=== PATIENT | female | born 1945 | race Caucasian/White ===

== ENCOUNTER 2017-07-07 19:31 | Inpatient (IN) | payer MEDICARE, MEDICAID ==
[~2017-07-07] VITALS: Ht 152.4 cm; Wt 68.0 kg
--- NOTE | ~2017-07-07 | CN ---
PATIENT NAME:CONNOR DE LEON MEDICAL RECORD: [id number] : 49 LOCATION:[facility] D.2107 ADMIT DATE: 07/07/17 ACCOUNT: [id number] CONSULTING PHYSICIAN: PARESH PAUL MD REFERRING PHYSICIAN: CLAUDINE ARGUETA MD DATE OF CONSULTATION: 07/08/2017 CONSULT REQUESTING PHYSICIAN: Dr. Mayra Ford. REASON FOR CONSULTATION: Pneumonia, left lower lobe, left pleural effusion. HISTORY OF PRESENT ILLNESS: Ms. De Leon is a 71-year-old female who has a history of asthma. According to the patient, yesterday she was eating and the food stuck in her midchest, in the gullet and then she had a chest pain. She was coughing. She had shortness of breath. She heard herself wheezing. No fever or chills. Cough is productive with white color sputum production. The patient was brought into the ER and admitted for pneumonia, left lower lobe. REVIEW OF SYSTEMS: Mainly in the history of present illness. PAST MEDICAL HISTORY: 1. Asthma. 2. Congestive heart failure. 3. Hypertension. 4. Hypothyroidism. 5. Allergies. 6. Gastroesophageal reflux disease. PAST SURGICAL HISTORY: 1. times 2. 2. Hysterectomy. 3. History of pericardiocentesis of her pericardial effusion. ALLERGIES: SHE IS ALLERGIC TO PENICILLIN, INFLUENZA VIRUS. PRESENT MEDICATIONS: [employer] was reviewed. PERSONAL AND SOCIAL HISTORY: The patient is a nonsmoker, but she does have a secondhand exposure because of her . She is a nondrinker. FAMILY HISTORY: Noncontributory. PHYSICAL EXAMINATION: GENERAL: Now, the patient is lying comfortably in bed. She is not in acute distress. VITAL SIGNS: The blood pressure is 130/53, pulse is 93, respiration 18, temperature 98.1, and SPO2 96% on room air. HEENT: Conjunctivae pink, sclerae nonicteric. NECK: Supple, no JVD. CHEST: The chest excursion is minimal on both sides. There are crackles at the left base. No wheezing. HEART: Rhythm regular, normal sound, no murmur. ABDOMEN: Soft. Bowel sounds present. No hepatosplenomegaly. RECTAL: Deferred. EXTREMITIES: No cyanosis, no clubbing, no pedal edema. CONSULT REPORT [id number] MOISES,DONIE SKIN: Warm, normal turgor. CENTRAL NERVOUS SYSTEM: The patient is awake and alert. There is no obvious cranial nerve abnormality. The gait was not tested. IMAGING: Chest radiograph, there is a left-sided pleural effusion. There is left lower lobe infiltrate. LABORATORY DATA: CBC: WBC is 11.2, hemoglobin 12.8, hematocrit is 39.5, the platelet count is 291. Chemistries: Creatinine is 0.9, potassium is 3.5, sodium is 135. IMPRESSION: 1. Pneumonia, left lower lobe, possible aspiration and possible community-acquired pneumonia. 2. Left pleural effusion, parapneumonic. 3. Gastroesophageal reflux disease. 4. Dysphagia. 5. Asthma with acute exacerbation. 6. Leukocytosis. 7. History of congestive heart failure. 8. History of pericardial effusion. RECOMMENDATION: 1. I will get the CT scan of the chest. 2. GI consult. 3. Swallowing evaluation. 3. Continue Levaquin IV. Start on clindamycin IV. 4. Start on Brovana, budesonide nebulizer, albuterol/ipratropium nebulizer. Dr. Ford, thank you for involving me in the care of Ms. De Leon. TRANSINT:[id number] Voice Confirmation ID: [id number] DOCUMENT ID: [id number] PARESH PAUL MD CC: CLAUDINE ARGUETA MD [id number] DICTATION DATE: 07/08/17 1537 COMPLIANCE ENGINEER: 07/09/17 0056 ADM IN [facility] [address] [place] [address]
[~2017-07-07 19:31] MED LIST: ASPIRIN325 MG PO; BAYER CHEWABLE81 MG PO; COLACE100 MG PO; FLAGYL500 MG PO; FLORAJEN3 CAPS460 MG PO; LEVAQUIN750 MG PO; MIRALAX17 GM PO; NITROSTAT0.4 MG SL; NORCO 10/325 TA1 TA1 PO; PRINIVIL20 MG PO; SYNTHROID PO; SYNTHROID150 MCG PO; TOPROL XL50 MG PO; TUDORZA PRESS400 MCG INH; XANAX0.5 MG PO; ZANTAC150 MG PO
[2017-07-07 20:43] LABS: BASOPHILS 0.2 % (0-2); EOSINOPHILS 0.4 % (0-7); HEMATOCRIT 39.5 % (36.0-48.0); HEMOGLOBIN 12.8 g/dL (12-16); IMMATURE GRANULOCYTES 0.6 % (0-5); LYMPHOCYTES 8.2 % (15-50); MCH 28.9 pg (26.0-34.0); MCHC 32.4 g/dL (31.0-37.0); MCV 89.2 fL (80.0-100.0); MEAN PLATELET VOLUME 9.2 fL (7.4-10.4); MONOCYTES 6.5 % (2-11); NEUTROPHILS 84.1 % (40-80); PLATELET COUNT 291 10x3/uL (130-400); RBC 4.43 10x6/uL (4.00-5.40); RDW 14.2 % (11.5-14.5); WBC 11.2 10x3/uL (4.8-10.8)
[2017-07-07 20:58] LABS: ALBUMIN 3.5 g/dL (3.4-5.0); ALKALINE PHOSPHATASE 93 U/L (46-116); ALT (SGPT) 29 U/L (10-68); BILIRUBIN - TOTAL 0.21 mg/dL (0.2-1.3); CALC OSMOLALITY 277 mosm/kg (275-300); CALCIUM 9.1 mg/dL (8.5-10.1); CHLORIDE - SERUM 102 mmol/L (98-107); CREATININE - SERUM 0.9 mg/dL (0.6-1.3); GLUCOSE 137 mg/dL (74-106); SODIUM 135 mmol/L (136-145); UREA NITROGEN 30 mg/dL (7-18); eGFR NON AFRICAN AMERICAN 66 mL/min (90-120)
[2017-07-07 21:09] LABS: CREATINE KINASE 59 UL (21-215); PRO BNP 134 pg/mL (0-125)
[2017-07-07 21:10] LABS: TROPONIN-I < 0.017 ng/mL (0.000-0.060)
[2017-07-08] VITALS (7 sets, daily range): BP systolic 120–148; BP diastolic 50–64; Ht 152.4 cm; Wt 68.0 kg
--- NOTE | 2017-07-08 00:50 | NUR ---
PT RECEIVED VIA WHEELCHAIR, AWAKE, ALERT, ORIENTED, C/O NAUSEA AND BEING COLD. PT WAS ASSISTED TO BED WITHOUT DIFFICULTY, V/S STABLE. ASSESSMENT AND HX COMPLETE. BEDSIDE COMMODE PLACED WITHIN EASY REACH OF PT, CALL LIGHT IN REACH, SIDE RAILS X 2, HOB 30 DEGREES. PT TO CALL WHEN NEEDING ANY ASSISTANCE.
--- NOTE | 2017-07-08 08:27 | NUR ---
0705-AM ROUNDING DONE WITH NO COMPLAINTS EXCEPT FOR BREAKFAST THIS AM. INFORMED HER THAT BREAKFAST WILL BE AROUND 0800. RIGHT HAND SEEN WITH NS INFUSING AT 75 CC/HR WITHOUT PROBLEMS. BSC AT BEDSIDE, ENCOURAGED TO USE CALL LIGHT FOR ALL NEEDS. ON ROM AIR. WILL CONTINUE TO MONITOR.
--- NOTE | 2017-07-08 13:07 | NUR ---
EKG DONE ORDERED.
[2017-07-08 13:51] LABS: CKMB 0.3 U/L (0.0-3.6); CREATINE KINASE 42 UL (21-215); TROPONIN-I < 0.017 ng/mL (0.000-0.060)
--- NOTE | 2017-07-08 14:10 | NUR ---
BILATERAL SCD'S PLACED ON PATIENT AND INSTRUCTED TO WHY THEY ARE ON. INSTRUCTED INTO STRICT I & O. [place] HAT PLACED IN [facility]. PLACED ON HEART MONITOR SHOWING SR W BBB, HR 74.
--- NOTE | 2017-07-08 14:14 | NUR ---
CALLED AND SPOKE WITH GÓMEZ IN THE LAB R/T ADDING EP TO LAB ALREADY DRAWN.
--- NOTE | 2017-07-08 15:12 | NUR ---
Is the patient Alert and Oriented? Yes 0 * How many steps to enter\exit or inside your home? NONE 0 * PCP DR ARGUETA 0 * Pharmacy CHANGING TO [facility] [address] * Preadmission Environment Home Alone 0 * ADLs Independent 0 * Equipment Walker 0 * Other Equipment NONE STATES SHE WAS TOLD BY THE LOAN PROCESSING SUPERVISOR SHE MAY NEED A NEBULIZER 0 * List name and contact numbers for known caregivers / representatives who currently or will assist patient after discharge: CAYETANO FIGUEROA- NEIGHBOR AND FRIEND [phone] 0 * Please name any agencies selected above. NONE 0 * Additional services required to return to the preadmission environment? No 0 * Can the patient safely return to the preadmission environment? Yes 0 * Has this patient been hospitalized within the prior 30 days at any hospital? Yes 0
--- NOTE | 2017-07-08 15:13 | NUR ---
MET W/ PATIENT AT THE BEDSIDE. SHE GAVE PERMISSION TO SPEAK WITH HER IN THE PRESENCE OF HER NEIGHBOR, CAYETANO FIGUEROA. CAYETANO IS ALSO A GOOD FRIEND. HER SON IN LAW, JORDIN , WILL PROVIDE TRANSPORTATION TO HOME AT DISCHARGE. CONTACT PHONE NUMBER- [phone]. PATIENT LIVES ALONE W/ HER 2 CATS AND A DOG. SHE HAS NO STEPS TO ENTER HER HOME. HAS A RAMP. AMBULATES WITH A WALKER. DENIES ANY OTHER DME. PCP- DR ARGUETA CARDIOLOGY- DR JIMENEZ HAS PULMONARY CONSULT W/ DR PAUL TODAY PHARMACY - CHANGING TO [facility] [address]. DME- WALKER- OMY[facility] IN [employer]- RECEIVES MEALS ON WHEELS STATES DR WILL SEND HOUSECALLS AT DISCHARGE. SHE DOES NOT WANT HOMECARE. STATES SHE MAY BE DISCHARGED TO HOME TOMORROW. HAS GOOD SUPPORT WITH JORDIN MONTEIRO AND HER ORIENTAL [employer] MEMBERS. [facility] DR SAID SHE MAYBE A NEBULIZER AT DISCHARGE. CM TO FOLLOW TO ASSIST IS APPROPRIATE
[2017-07-08 15:33] LABS: MAGNESIUM - SERUM 1.7 mg/dL (1.8-2.4); PHOSPHOROUS 3.1 mg/dL (2.5-4.9); POTASSIUM - SERUM 3.5 mmol/L (3.5-5.1)
--- NOTE | 2017-07-08 15:39 | NUR ---
I CALLED LASHAWN IN PHARMACY TO ASK ABOUT PATIENT BEING ON CLEOCIN AND ALLERGY TO PCN. HE STATES THAT THIS SHOULD BE FINE.
--- NOTE | 2017-07-08 17:09 | NUR ---
DR SRINIVAASN HERE TO SEE PATIENT.
--- NOTE | 2017-07-08 17:40 | NUR ---
EGD WITH TIVA PERMITS SIGNED AND WITNESSED, PLACED ON CHART. PATIENT IS MADE AWARE OF NPO PAST MIDNIGHT.
--- NOTE | 2017-07-08 18:07 | NUR ---
2ND EKG DONE ORDERED.
[2017-07-08 19:07] LABS: CKMB 0.3 U/L (0.0-3.6); CREATINE KINASE 51 UL (21-215)
--- NOTE | 2017-07-08 19:15 | NUR ---
TO CT VIA WHEELCHAIR.
[2017-07-08 19:25] LABS: TROPONIN-I < 0.017 ng/mL (0.000-0.060)
--- NOTE | 2017-07-08 19:45 | NUR ---
PT LYING IN BED, AWAKE, ALERT, ORIENTED, REQUESTING PRN PAIN MEDICATION. PT DENIES ANY OTHER NEEDS. CONTINUE TO MONITOR CLOSELY. BED LOW, CALL LIGHT IN REACH, SIDE RAILS X 2, HOB 30 DEGREES.
--- NOTE | 2017-07-09 01:34 | NUR ---
07/08/172299 - PT CALLED C/O GENERALIZED ITCHING AND SUGGESTED IT MAY BE FROM THE LEVAQUIN INFUSION. I ASKED PT IF SHE EXPERIENCED ITCHING LAST NIGHT WHEN SHE RECEIVED LEVAQUIN IN THE ER, AND SHE STATED "YES" THAT SHE DID EXPERIENCE GENERALIZED ITCHING WITH THAT DOSE WELL. I HAVE HELD THE CLEOCIN FOR 2300 WELL SINCE BOTH ANTIBIOTICS WERE GIVEN CLOSE TOGETHER. I DID OVERRIDE PO BENADRYL FOR PT AND DID GIVE HER A COLD WET WASH CLOTH TO RUB ON THE PLACES THAT WERE ITCHING. PT HAS BEEN RESTING COMFORTABLY SINCE. CONTINUE TO MONITOR CLOSELY. BED LOW, CALL LIGHT IN REACH, SIDE RAILS X 2, HOB 30 DEGREES. PT STATES THAT SHE UNDERSTANDS THAT SHE IS NPO AFTER MIDNIGHT.
[2017-07-09 01:54] LABS: CKMB 0.4 U/L (0.0-3.6); CREATINE KINASE 51 UL (21-215); TROPONIN-I < 0.017 ng/mL (0.000-0.060)
--- NOTE | 2017-07-09 03:24 | NUR ---
PT LYING IN BED ON BACK, EYES CLOSED RESPIRATIONS EVEN AND UNLABORED. CONTINUE TO MONITOR CLOSELY. BED LOW, CALL LIGHT IN REACH, SIDE RAILS X 2, HOB 30 DEGREES.
[2017-07-09 04:14] VITALS: BP 134/66
[2017-07-09 05:42] LABS: BASOPHILS 0.6 % (0-2); EOSINOPHILS 0.9 % (0-7); HEMATOCRIT 36.7 % (36.0-48.0); HEMOGLOBIN 11.8 g/dL (12-16); IMMATURE GRANULOCYTES 0.7 % (0-5); LYMPHOCYTES 13.5 % (15-50); MCH 28.9 pg (26.0-34.0); MCHC 32.2 g/dL (31.0-37.0); MCV 89.7 fL (80.0-100.0); MEAN PLATELET VOLUME 9.3 fL (7.4-10.4); MONOCYTES 10.6 % (2-11); NEUTROPHILS 73.7 % (40-80); PLATELET COUNT 264 10x3/uL (130-400); RBC 4.09 10x6/uL (4.00-5.40); RDW 14.5 % (11.5-14.5)
[2017-07-09 05:56] LABS: CALC OSMOLALITY 284 mosm/kg (275-300); CALCIUM 8.5 mg/dL (8.5-10.1); CARBON DIOXIDE 28.6 mmol/L (21.0-32.0); CHLORIDE - SERUM 107 mmol/L (98-107); CREATININE - SERUM 0.8 mg/dL (0.6-1.3); GLUCOSE 106 mg/dL (74-106); POTASSIUM - SERUM 3.3 mmol/L (3.5-5.1); SODIUM 143 mmol/L (136-145); eGFR NON AFRICAN AMERICAN 75 mL/min (90-120)
[2017-07-09 06:02] LABS: WBC 6.8 10x3/uL (4.8-10.8)
[2017-07-09 06:13] LABS: UREA NITROGEN 12 mg/dL (7-18)
--- NOTE | 2017-07-09 07:01 | NUR ---
PT COULD ONLY TOLERATE DRINKING 1/2 OF THE PO LIQUID POTASSIUM WITH JUICE THIS MORNING, STATING IT MADE HER SICK/NAUSEATED. PT ALSO IS REQUESTING FOR K+ PILL/TABLET INSTEAD OF TAKING THE LIQUID. PTS CLINDAMYCIN DROPPED, REPLACING WITH ANOTHER VIAL. I ASSISTED PT TO BATHROOM, DENIES ANY OTHER NEEDS. PT KNOWS TO REMAIN NPO FOR ENDOSCOPE LATER TODAY.
--- NOTE | 2017-07-09 07:37 | NUR ---
PT SITTING UP IN BED TALKING ON THE PHONE DENIES ANY NEEDS WILL CONT TO MONITOR
--- NOTE | 2017-07-09 08:20 | NUR ---
PT PIV INFILTRATED DC WITH CATH TIP INTACT WILL RESITE
[2017-07-09 08:49] VITALS: BP 120/59
--- NOTE | 2017-07-09 11:11 | NUR ---
SPOKE WITH MERVAT KENYON ABOUT PT REACTION TO POSSIBLY LEVAQUIN OR CLIDOMYCIN. NIGHT NURSE WAS UNSURE WHICH ONE. SAID TO HOLD FOR NOW AND WILL TALK WITH DR PAUL WHEN HE GETS HERE. WILL DO.
--- NOTE | 2017-07-09 11:34 | NUR ---
PT IS REFUSING FOR ME TO RESITE HER PIV BECAUSE SHE WANTS IT IN HER FA. I DO NOT SEE/FEEL ANY AVAILABLE ACCESS SITE. CALLED DANA ARTHUR NURSE TO SEE IF SHE WOULD ATTEMPT RESITE. ON HER WAY
[2017-07-09 11:58] VITALS: BP 127/63
--- NOTE | 2017-07-09 13:03 | NUR ---
PT IS REFUSING TO RECEIVE THE KCL RIDERS FOR LOW POTASSIUM. PT IS NPO AND PROTOCOL CALLS FOR IV RIDERS. OFFERED TO WAIT AFTER PT PROCEDURE SO SHE COULD TAKE THE ORAL KCL PER PROTOCOL BUT PT IS REFUSING "THAT NASTY STUFF". PT KCL IS NOT CRITICAL AND PT IS NOT SYMPTOMATIC. PT IS AWARE AND DOES NOT WANT ANY TREATMENT FOR HER LOW K LEVEL OF 3.3
--- NOTE | 2017-07-09 14:41 | NUR ---
TALKED WITH DR PAUL ABOUT PT BEING ALLERGIC TO POSSIBLY BOTH LEVAQUIN AND CLINDOMYCIN. SHE HAD ITCHING REACTION AT THE END OF LEVAQUIN AND BEGINNING OF CLINDO.
--- NOTE | 2017-07-09 15:33 | NUR ---
PT BACK FROM EGD. ALERT AND ORIENTED. VS ARE WNL FAMILY AT BEDSIDE. WILL CONT TO MONITOR
--- NOTE | 2017-07-09 15:36 | NUR ---
SPOKE WITH DR PAUL ABOUT PT REACTION TO LEVAQUIN OR POSSIBLY CLINDOMYCIN. SAID TO SHLOMO LEVAQUIN FOR NOW. DONE. WILL WATCH FOR REACTION FOR CLINDOMYCIN
[2017-07-09 16:09] VITALS: BP 122/56
--- NOTE | 2017-07-09 18:37 | NUR ---
PT SITTING UP IN BED WATCHING TV DENIES NEEDS
--- NOTE | 2017-07-09 19:53 | NUR ---
PT IS RESTING QUIETLY IN BED DOING A UPDRAFT TX AT THIS TIME. ALERT AND ORIENTED X 3. DENIES ANY PAIN OR DISCOMFORT. PT STATES SHE FEELS MUCH BETTER, AND MAY GET TO GO HOME TOMORROW. IV INFUSING TO LFA WITHOUT DIFFICULTY. NO REDNESS OR EDEMA NOTED AT THE INSERTION SITE. SR'S ARE UP X 3 IN BED. CALL LIGHT AND BEDSIDE TABLE ARE WITHIN EASY REACH.
[2017-07-09 20:00] VITALS: BP 127/55
--- NOTE | 2017-07-09 21:43 | NUR ---
PT IS RESTING IN BED WITH EYES OPEN. NO NEEDS VOICED. PT IS VERY TALKATIVE.
--- NOTE | 2017-07-09 23:51 | NUR ---
PT IS RESTING QUIETLY IN BED WITH EYES CLOSED. NO ACUTE DISTRESS NOTED.
[2017-07-10 01:25] VITALS: BP 117/57
--- NOTE | 2017-07-10 02:39 | NUR ---
PT IS RESTING QUIETLY IN BED WITH EYES CLOSED.
--- NOTE | 2017-07-10 03:58 | NUR ---
INSTRUMENTATION SUPERVISOR AT BEDSIDE TO OBTAIN VITALS, CALL LIGHT IN REACH. WILL CONTINUE WITH PLAN OF CARE.
[2017-07-10 04:12] VITALS: BP 114/54
--- NOTE | 2017-07-10 05:20 | NUR ---
PT IS RESTING IN BED WITH EYES OPEN. VERY TALKIATIVE. NO ACUTE DISTRESS NOTED. NO NEEDS VOICED.
[2017-07-10 05:53] LABS: BASOPHILS 0.3 % (0-2); EOSINOPHILS 1.1 % (0-7); HEMATOCRIT 35.5 % (36.0-48.0); HEMOGLOBIN 11.4 g/dL (12-16); IMMATURE GRANULOCYTES 1.1 % (0-5); LYMPHOCYTES 12.8 % (15-50); MCH 28.9 pg (26.0-34.0); MCHC 32.1 g/dL (31.0-37.0); MCV 90.1 fL (80.0-100.0); MEAN PLATELET VOLUME 9.1 fL (7.4-10.4); MONOCYTES 10.3 % (2-11); NEUTROPHILS 74.4 % (40-80); PLATELET COUNT 271 10x3/uL (130-400); RBC 3.94 10x6/uL (4.00-5.40); RDW 14.9 % (11.5-14.5)
[2017-07-10 06:17] LABS: ANION GAP 12.1 mmol/L (8-16); CALCIUM 8.3 mg/dL (8.5-10.1); CARBON DIOXIDE 26.2 mmol/L (21.0-32.0); CREATININE - SERUM 0.9 mg/dL (0.6-1.3); PHOSPHOROUS 2.9 mg/dL (2.5-4.9); POTASSIUM - SERUM 3.3 mmol/L (3.5-5.1)
--- NOTE | 2017-07-10 07:26 | NUR ---
AM ROUNDING DONE WITH PATIENT DRINKING JUSICE WITH LIQUID POTASSIUM. ON EP. K+ WAS 3.3 THIS AM. WILL WATCH FOR RE-DRAW THAT IS ORDERED. LEFT WRIST SEEN WITH NS INFUSING AT 75 CC/HR. ON ROOM AIR. ON HEART MONITOR SHOWING SR W BBB, HR 91. WILL CPOC.
[2017-07-10 09:12] VITALS: BP 140/77
[2017-07-10 12:50] VITALS: BP 142/75
--- NOTE | 2017-07-10 13:27 | NUR ---
Nutrition follow-up: Diet: Regular soft PO intake ~75% of meals Labs reviewed Wt: 150# RDN visited with pt during breakfast; helped pt fill out todays menus. Pt reports no being able to eat very much per doctors orders. RDN following.
[2017-07-10] MEDS ORDERED: CARAFATE1 G/10 ML PO (14:53)
[2017-07-10] MEDS ORDERED: PROTONIX40 MG PO (14:54)
[2017-07-10] MEDS ORDERED: PEPCID20 MG PO (14:54)
--- NOTE | 2017-07-10 15:35 | NUR ---
HEART MONITOR IS TURNED IN PATIENT IS BEING DISCHARGED.
--- NOTE | 2017-07-10 15:57 | NUR ---
Patient Name: CONNOR DE LEON Encounter No: [id number] : 1945 Primary Insurance: [id number] Anticipated DC Date: 07-10-2017 Planned Disposition: Home DCP follow-up note: CM RECEIVED DISCHARGE ORDER, MET WITH PT IN ROOM TO DISCUSS DISCHARGE NEEDS AND PLANNING. CM DISCUSSED AVAILABILITY OF HOME HEALTH, REHAB SERVICES AND MEDICAL EQUIPMENT. PT DENIES DISCHARGE NEEDS, DOES NOT WANT THERAPY OR REHAB SERVICES, REPORTS HAVING A WALKER AT HOME AND A NEIGHBOR THAT CHECKS ON HER AND ASSISTS IF NEEDED. PT'S NEIGHBOR HERE TO TRANSPORT HOME AT DISCHARGE. IMPORTANT MESSAGE FROM MEDICARE PROVIDED AND EXPLAINED. Rd Jack, CASE MANAGEMENT
--- NOTE | 2017-07-10 16:55 | NUR ---
SALINE LOCK REMOVED WITH CATH TIP INTACT. VERBAL AND WRITTEN DISCHARGE INSTRUCTIONS GIVEN TO PATIENT. DISCHARGED HOME VIA WHEELCHAIR.
== END 2017-07-10 16:57 | disposition home or self-care (01) | DRG 178 ==
LOC: D.ER 19:31 → D.M2 23:40 → OBSVTIME 23:41 → D.M2 07-09 11:13
PROVIDERS: Family Medicine; Internal Medicine Gastroenterology; Nurse Practitioner Acute Care; ADMIT Family Medicine
PROC: 0DB68ZX Excision of Stomach, Via Natural or Artificial Opening Endoscopic, Diagnostic (ICD-10-PCS; 2017-07-09)
PROC: 0DB58ZX Excision of Esophagus, Via Natural or Artificial Opening Endoscopic, Diagnostic (ICD-10-PCS; 2017-07-09)
PROC: 0DB98ZX Excision of Duodenum, Via Natural or Artificial Opening Endoscopic, Diagnostic (ICD-10-PCS; principal; 2017-07-09 14:00)
DX: J69.0 Pneumonitis due to inhalation of food and vomit (principal); K22.10 Ulcer of esophagus without bleeding; J45.901 Unspecified asthma with (acute) exacerbation; J98.11 Atelectasis; I31.3 Pericardial effusion (noninflammatory); I11.0 Hypertensive heart disease with heart failure; I50.9 Heart failure, unspecified; F41.9 Anxiety disorder, unspecified; E03.9 Hypothyroidism, unspecified; K21.0 Gastro-esophageal reflux disease with esophagitis; K44.9 Diaphragmatic hernia without obstruction or gangrene; K29.70 Gastritis, unspecified, without bleeding; K29.80 Duodenitis without bleeding

== ENCOUNTER 2017-11-10 19:18 | Emergency (ER) | payer MEDICARE, MEDICAID ==
[2017-07-08 12:13] VITALS: BMI 29.2
[~2017-11-10 19:18] MED LIST changes: +CARAFATE1 G/10 ML PO; +PEPCID20 MG PO; +PROTONIX40 MG PO
[2017-11-10 20:25] LABS: BASOPHILS 0.3 % (0-2); EOSINOPHILS 0 % (0-7); HEMATOCRIT 38.3 % (36.0-48.0); HEMOGLOBIN 12.4 g/dL (12-16); IMMATURE GRANULOCYTES 0.5 % (0-5); MCH 28.1 pg (26.0-34.0); MCHC 32.4 g/dL (31.0-37.0); MCV 86.7 fL (80.0-100.0); MEAN PLATELET VOLUME 9.2 fL (7.4-10.4); MONOCYTES 8.7 % (2-11); NEUTROPHILS 84.5 % (40-80); PLATELET COUNT 237 10x3/uL (130-400); RBC 4.42 10x6/uL (4.00-5.40); RDW 14.5 % (11.5-14.5); WBC 7.6 10x3/uL (4.8-10.8)
[2017-11-10 20:49] LABS: ALBUMIN 3.4 g/dL (3.4-5.0); ALKALINE PHOSPHATASE 80 U/L (46-116); ALT (SGPT) 41 U/L (10-68); BILIRUBIN - TOTAL 0.24 mg/dL (0.2-1.3); CALC OSMOLALITY 271 mosm/kg (275-300); CALCIUM 8.3 mg/dL (8.5-10.1); CHLORIDE - SERUM 98 mmol/L (98-107); CREATININE - SERUM 0.8 mg/dL (0.6-1.3); GLUCOSE 117 mg/dL (74-106); POTASSIUM - SERUM 3.3 mmol/L (3.5-5.1); SODIUM 134 mmol/L (136-145); UREA NITROGEN 22 mg/dL (7-18); eGFR NON AFRICAN AMERICAN 75 mL/min (90-120)
[2017-11-10 20:55] LABS: PRO BNP 138 pg/mL (0-125)
[2017-11-10 20:58] LABS: TROPONIN-I < 0.017 ng/mL (0.000-0.060)
== END 2017-11-10 21:30 | disposition home or self-care (01) ==
LOC: D.ER 19:18
PROVIDERS: Family Medicine
DX: J20.9 Acute bronchitis, unspecified (principal); I10 Essential (primary) hypertension

== ENCOUNTER 2017-12-04 10:12 | Emergency (ER) | payer MEDICARE, MEDICAID ==
[2017-07-08 12:13] VITALS: BMI 29.2
== END 2017-12-04 13:05 | disposition home or self-care (01) ==
LOC: D.ER 10:12
DX: S00.83XA Contusion of other part of head, initial encounter (principal); W01.0XXA Fall on same level from slipping, tripping and stumbling without subsequent striking against object, initial encounter; Y93.89 Activity, other specified; Y92.019 Unspecified place in single-family (private) house as the place of occurrence of the external cause; S00.81XA Abrasion of other part of head, initial encounter; S02.2XXA Fracture of nasal bones, initial encounter for closed fracture

== ENCOUNTER 2018-06-13 13:36 | Emergency (ER) | payer MEDICARE, MEDICAID ==
[~2018-06-13] VITALS: Ht 152.4 cm; Wt 66.4 kg
[2018-06-13 13:38] VITALS: Ht 152.4 cm; Wt 66.4 kg
[2018-06-13 14:36] LABS: BASOPHILS 0.5 % (0-2); EOSINOPHILS 0.7 % (0-7); HEMATOCRIT 40.1 % (36.0-48.0); IMMATURE GRANULOCYTES 0.6 % (0-5); LYMPHOCYTES 10.7 % (15-50); MCH 29.1 pg (26.0-34.0); MCHC 32.4 g/dL (31.0-37.0); MCV 89.9 fL (80.0-100.0); MEAN PLATELET VOLUME 10.2 fL (7.4-10.4); MONOCYTES 6.3 % (2-11); NEUTROPHILS 81.2 % (40-80); RBC 4.46 10x6/uL (4.00-5.40); RDW 15.1 % (11.5-14.5); WBC 10.5 10x3/uL (4.8-10.8)
[2018-06-13 14:39] LABS: PLATELET COUNT 340 10x3/uL (130-400)
[2018-06-13 14:45] LABS: APTT 29.9 SECONDS (22.8-39.4); INR 0.9 (0.85-1.17); PROTIME 11.8 SECONDS (11.6-15.0)
[2018-06-13 14:52] LABS: APPEARANCE HAZY (CLEAR); BILIRUBIN NEGATIVE (NEGATIVE); COLOR YELLOW (YELLOW); GLUCOSE NEGATIVE (NEGATIVE); KETONE NEGATIVE (NEGATIVE); NITRITE NEGATIVE (NEGATIVE); PROTEIN NEGATIVE (NEGATIVE); UROBILINOGEN NORMAL (NORMAL)
[2018-06-13 14:54] LABS: BACTERIA MODERATE /hpf (NONE SEEN); EPITHELIAL CELLS 0-5 /hpf (0-5); RED CELLS - URINE 0-5 /hpf (0-5)
[2018-06-13 15:00] LABS: D-DIMER-QUANTITATIVE 9.06 ug/mLFEU (0.20-0.54)
[2018-06-13 15:16] LABS: ALBUMIN 3.4 g/dL (3.4-5.0); ALKALINE PHOSPHATASE 72 U/L (46-116); ALT (SGPT) 22 U/L (10-68); BILIRUBIN - TOTAL 0.19 mg/dL (0.2-1.3); CALC OSMOLALITY 275 mosm/kg (275-300); CALCIUM 8.4 mg/dL (8.5-10.1); CARBON DIOXIDE 28.8 mmol/L (21.0-32.0); CHLORIDE - SERUM 104 mmol/L (98-107); CREATININE - SERUM 0.9 mg/dL (0.6-1.3); GLUCOSE 108 mg/dL (74-106); POTASSIUM - SERUM 3.5 mmol/L (3.5-5.1); PROTEIN - SERUM 6.6 g/dL (6.4-8.2); SODIUM 136 mmol/L (136-145); UREA NITROGEN 21 mg/dL (7-18); eGFR NON AFRICAN AMERICAN 66 mL/min (90-120)
[2018-06-13 15:27] LABS: CKMB 0.5 U/L (0.0-3.6); TROPONIN-I < 0.017 ng/mL (0.000-0.060)
[2018-06-13 17:59] VITALS: BP 118/60
[2018-06-17 12:15] LABS: CK - ISO (BB) 0 % (0); CK - ISO (CK TOTAL) 51 U/L (24-173); CK - ISO (CK-MB) 0 % (0-3); CK - ISO (CK-MM) 100 % (97-100); CK - ISO (MACRO TYPE 1) 0 % (Not Observed); CK - ISO (MACRO TYPE 2) 0 % (Not Observed)
== END 2018-06-13 18:09 | disposition home or self-care (01) ==
LOC: D.ER 13:36
PROVIDERS: Family Medicine
DX: R06.00 Dyspnea, unspecified (principal); I10 Essential (primary) hypertension; I50.9 Heart failure, unspecified; K21.9 Gastro-esophageal reflux disease without esophagitis

== ENCOUNTER → 2019-08-20 12:19 | Outpatient (CLI) | payer MEDICARE, MEDICAID ==
[2018-06-13 13:38] VITALS: BMI 28.5
== END | disposition home or self-care (01) ==
LOC: D.RAD 12:19
PROVIDERS: ATTEND Family Medicine
DX: R13.10 Dysphagia, unspecified (principal); R11.10 Vomiting, unspecified

== ENCOUNTER 2020-05-13 15:14 | Emergency (ER) | payer MEDICARE, MEDICAID ==
[~2020-05-13] VITALS: Ht 152.4 cm; Wt 64.1 kg
[2020-05-13 15:21] VITALS: Ht 152.4 cm; Wt 64.1 kg
[2020-05-13] MEDS ORDERED: VISTARIL25 MG PO (15:46)
[2020-05-13 16:38] VITALS: BP 128/72
== END 2020-05-13 16:38 | disposition home or self-care (01) ==
LOC: D.ER 15:14
DX: F41.9 Anxiety disorder, unspecified (principal); I11.0 Hypertensive heart disease with heart failure; I50.9 Heart failure, unspecified; J45.909 Unspecified asthma, uncomplicated

== ENCOUNTER 2021-05-10 18:51 | Emergency (ER) | payer MEDICARE, MEDICAID ==
[~2021-05-10] VITALS: Ht 152.4 cm; Wt 63.6 kg
[~2021-05-10 18:51] MED LIST changes: +VISTARIL25 MG PO
[2021-05-10 18:57] VITALS: Ht 152.4 cm; Wt 63.6 kg
[2021-05-10 19:28] LABS: BASOPHILS 0.6 % (0-2); EOSINOPHILS 0.3 % (0-7); HEMATOCRIT 36.1 % (36.0-48.0); HEMOGLOBIN 11.6 g/dL (12-16); MCH 26.7 pg (26.0-34.0); MCHC 32.2 g/dL (31.0-37.0); MCV 82.9 fL (80.0-100.0); MEAN PLATELET VOLUME 7.1 fL (7.4-10.4); MONOCYTES 5.8 % (2-11); NEUTROPHILS 80.3 % (40-80); PLATELET COUNT 350 10x3/uL (130-400); RBC 4.35 10x6/uL (4.00-5.40); WBC 9.2 10x3/uL (4.8-10.8)
[2021-05-10 19:36] LABS: APTT 26.4 SECONDS (22.8-39.4); PROTIME 12.2 SECONDS (11.6-15.0)
[2021-05-10 19:39] LABS: CALC OSMOLALITY 275 mosm/kg (275-300); CARBON DIOXIDE 24.9 mmol/L (21.0-32.0); CHLORIDE - SERUM 100 mmol/L (98-107); CREATININE - SERUM 0.9 mg/dL (0.6-1.3); GLUCOSE 117 mg/dL (74-106); POTASSIUM - SERUM 3.6 mmol/L (3.5-5.1); SODIUM 137 mmol/L (136-145); UREA NITROGEN 16 mg/dL (7-18); eGFR NON AFRICAN AMERICAN 65 mL/min (90-120)
[2021-05-10 19:52] LABS: ALBUMIN 3.5 g/dL (3.4-5.0); ALKALINE PHOSPHATASE 76 U/L (30-120); ALT (SGPT) 17 U/L (10-68); BILIRUBIN - TOTAL 0.37 mg/dL (0.2-1.3); PRO BNP 390 pg/mL (0-125); PROTEIN - SERUM 6.7 g/dL (6.4-8.2)
[2021-05-10 19:53] LABS: TROPONIN-I < 0.017 ng/mL (0.000-0.060)
[2021-05-10 21:33] LABS: BACTERIA MOD HPF (<MOD); BILIRUBIN NEGATIVE (NEGATIVE); KETONE NEGATIVE mg/dL (< 1+); NITRITE NEGATIVE (NEGATIVE); PH 5.5 (5.0-8.0); SQUAMOUS EPITHELIAL 1 HPF (0-4); UROBILINOGEN NORMAL mg/dL (< 2); WHITE CELLS - URINE 7 HPF (0-4)
[2021-05-10] MEDS ORDERED: OMNICEF300 MG PO (22:06)
== END 2021-05-10 22:45 | disposition home or self-care (01) ==
LOC: D.ER 18:51
PROVIDERS: Family Medicine
DX: R07.9 Chest pain, unspecified (principal); D64.9 Anemia, unspecified; J40 Bronchitis, not specified as acute or chronic; R42 Dizziness and giddiness; N39.0 Urinary tract infection, site not specified; R35.0 Frequency of micturition; R73.9 Hyperglycemia, unspecified; I10 Essential (primary) hypertension